=== PATIENT | male | born 1985 | race Two or more races ===

== ENCOUNTER 2020-12-16 09:47 | Emergency (ER) | payer SELFPAY ==
[~2020-12-16] VITALS: Ht 160 cm; Wt 63.6 kg
[2020-12-16 10:44] VITALS: BP 122/64
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
== END 2020-12-16 10:28 | disposition left against medical advice (07) ==
LOC: ER 09:47
DX: S09.90XA Unspecified injury of head, initial encounter (principal); R45.1 Restlessness and agitation; F17.200 Nicotine dependence, unspecified, uncomplicated; Y08.89XA Assault by other specified means, initial encounter; Y93.89 Activity, other specified; Y92.89 Other specified places as the place of occurrence of the external cause; Y99.8 Other external cause status
CPT/HCPCS: 99281